=== PATIENT | male | born 1955 | race Caucasian/White ===

== ENCOUNTER 2019-03-21 12:15 | Inpatient (IN) | payer OTHER ==
--- NOTE | 2019-03-21 12:38 | ER Document Report ---
ED Medical Screen (RME) - General Chief Complaint: Dizziness Stated Complaint: DIZZINESS,FACIAL TINGLING,LEFT ARM NUMBNESS Time Seen by Provider: 03/21/19 12:32 Mode of Arrival: Wheelchair Information source: Patient Notes: 63-year-old male presented to ED for numbness and tingling to the right side of his face arm hand and weakness to the his right arm and leg with decreased sensation to the left arm. He states this all started Wednesday. He states he is still unsteady on his feet little lightheaded and having trouble walking due to this symptoms. He states he had a similar symptoms on but they did not last so he did not come and get evaluated. He states he lives alone so he did not know what was going on. Patient is NIH negative at this time. His symptoms do sound consistent with a TIA I will get blood urine and have seen by the physicians. As he has had 2 episodes that 1 at and one yesterday. I have greeted and performed a rapid initial assessment of this patient. A comprehensive ED assessment and evaluation of the patient, analysis of test results and completion of medical decision making process will be conducted by an additional ED providers. Physical Exam - Vital signs Vitals: Temp Pulse Resp BP Pulse Ox 97.8 F 83 16 146/84 H 99 03/21/19 12:25 03/21/19 12:25 03/21/19 12:25 03/21/19 12:25 03/21/19 12:25 Course - Vital Signs Vital signs: Temp Pulse Resp BP Pulse Ox 97.8 F 83 16 146/84 H 99 03/21/19 12:25 03/21/19 12:25 03/21/19 12:25 03/21/19 12:25 03/21/19 12:25
[2019-03-21 13:19] LABS: ABSOLUTE BASOPHILS # (AUTO) 0.1 10^3/uL (0.0-0.2); ABSOLUTE EOSINOPHILS # (AUTO) 0.1 10^3/uL (0.0-0.6); ABSOLUTE LYMPHOCYTES (AUTO) 1.4 10^3/uL (0.5-4.7); ABSOLUTE MONOCYTES (AUTO) 0.5 10^3/uL (0.1-1.4); ABSOLUTE NEUT (AUTO) 4.6 10^3/uL (1.7-8.2); EOSINOPHILS % (AUTO) 1.5 % (0-6); HEMATOCRIT 43.8 % (37.9-51.0); HEMOGLOBIN 15.5 g/dL (13.5-17.0); MEAN CORPUSCULAR HEMOGLOBIN 33.7 pg (27.0-33.4); MEAN CORPUSCULAR HGB CONC 35.3 g/dL (32.0-36.0); MEAN CORPUSCULAR VOLUME 96 fl (80-97); MONOCYTES % (AUTO) 7.6 % (3-13); PLATELET COUNT 172 10^3/uL (150-450); RED BLOOD COUNT 4.59 10^6/uL (4.35-5.55); RED CELL DISTRIBUTION WIDTH 12.4 % (11.5-14.0); SEGMENTED NEUTROPHILS % (AUTO) 68.9 % (42-78); TOTAL CELLS COUNTED % (AUTO) 100 %; WHITE BLOOD COUNT 6.6 10^3/uL (4.0-10.5)
[2019-03-21 13:25] LABS: INTERNATIONAL RATION (INR) 0.99; PROTHROMBIN TIME 13.1 SEC (11.4-15.4)
[2019-03-21 13:26] LABS: PARTIAL THROMBOPLASTIN TIME 26.1 SEC (23.5-35.8)
[2019-03-21 13:28] LABS: APPEARANCE,URINE CLEAR; BILIRUBIN,URINE NEGATIVE (NEGATIVE); COLOR,URINE YELLOW; GLUCOSE, URINE >=500 mg/dL (NEGATIVE); KETONES,URINE 20 mg/dL (NEGATIVE); PROTEIN,URINE NEGATIVE (NEGATIVE); URINE SPECIFIC GRAVITY 1.031; UROBILINOGEN,URINE NEGATIVE mg/dL (<2.0)
[2019-03-21 13:41] LABS: ALBUMIN 4.5 g/dL (3.5-5.0); ALKALINE PHOSPHATASE 51 U/L (38-126); ANION GAP 13 (5-19); ASPARTATE AMINO TRANSFERASE 46 U/L (17-59); BILIRUBIN,DIRECT 0.2 mg/dL (0.0-0.4); BILIRUBIN,TOTAL 0.8 mg/dL (0.2-1.3); BLOOD UREA NITROGEN 13 mg/dL (7-20); CALCIUM 9.6 mg/dL (8.4-10.2); CARBON DIOXIDE 24 mmol/L (22-30); CHLORIDE 102 mmol/L (98-107); GLUCOSE 234 mg/dL (75-110); POTASSIUM 3.8 mmol/L (3.6-5.0)
[2019-03-21] MEDS ORDERED: NORMAL SALINE 1000 ML 1,000 ML IV ONE (14:45)
--- NOTE | 2019-03-21 14:52 | ER Document Report ---
ED Dizziness/Weakness - General Chief Complaint: Numbness of Arm Stated Complaint: DIZZINESS,FACIAL TINGLING,LEFT ARM NUMBNESS Time Seen by Provider: 03/21/19 12:32 Primary Care Provider: [facility] [Primary Care Provider] - Follow up as needed Mode of Arrival: Wheelchair Information source: Patient TRAVEL OUTSIDE OF THE [place] IN LAST 30 DAYS: No - HPI Patient complains to provider of: Dizziness, Vertigo Onset: Other - Patient gives history that his first episode of dizziness and numbness and tingling on the right side of his body occurred May 2018 lasted for 1 day. On 1 week ago he noted part of the day he had similar symptoms of numbness tingling facial numbness right side it that lasted about 6 hours during that day. Symptoms abated and no further problem until 1 week later which was Wednesday he noted that he was having numbness tingling problems with gait that started on Wednesday night on into Wednesday. Patient found himself crawling on the floor in order to transport himself in his house. Or required holding onto furniture or the marx. Patient began using a cane and after doing some research and on his condition as well as discussion with with friends and family he elected to come to the emergency department for evaluation today. Quality of pain: No pain Severity: Moderate Pain Level: 0 Context: Other - Patient reports that he took 5 baby aspirin's yesterday, and he took 2 baby aspirin today. Associated symptoms: Dizzy, Other - Denies any syncope or falls. Denies headache nausea vomiting chills. Patient did report that he had problems swallowing on Wednesday. He is now no problems with eating p.o. food or liquid drinking liquids. Baseline gait: Uses a cane - Related Data Allergies/Adverse Reactions: bee venom protein (honey bee) Allergy (Verified 03/21/19 18:43) Penicillins Allergy (Verified 03/21/19 18:43) Past Medical History - General Information source: Patient - Social History Smoking Status: Former Smoker Frequency of alcohol use: None Drug Abuse: None Lives with: Alone Family History: None Patient has suicidal ideation: No Patient has homicidal ideation: No - Past Medical History Cardiac Medical History: Reports: None Pulmonary Medical History: Reports: None EENT Medical History: Reports: Other - Wears glasses Neurological Medical History: Reports: Other - See HPI Endocrine Medical History: Reports: None Renal/ Medical History: Reports: None Malignancy Medical History: Reports None GI Medical History: Reports: None Musculoskeletal Medical History: Reports Other - History of broken bones in the past including left wrist Skin Medical History: Reports None Psychiatric Medical History: Reports: None Past Surgical History: Reports: None - Immunizations Immunizations up to date: Yes Review of Systems - Review of Systems Constitutional: See HPI EENT: See HPI Cardiovascular: See HPI, Dizziness, Lightheaded Respiratory: No symptoms reported Gastrointestinal: No symptoms reported Genitourinary: No symptoms reported Musculoskeletal: No symptoms reported Skin: No symptoms reported Hematologic/Lymphatic: No symptoms reported Neurological/Psychological: See HPI Physical Exam - Vital signs Vitals: Temp Pulse Resp BP Pulse Ox 97.8 F 83 16 146/84 H 99 03/21/19 12:25 03/21/19 12:25 03/21/19 12:25 03/21/19 12:25 03/21/19 12:25 Interpretation: Normal - General General appearance: Appears well, Alert - HEENT Head: Normocephalic, Atraumatic Eyes: Normal Pupils: PERRL - Respiratory Respiratory status: No respiratory distress Chest status: Nontender Breath sounds: Normal Chest palpation: Normal - Cardiovascular Rhythm: Regular Heart sounds: Normal auscultation Murmur: No - Abdominal Inspection: Normal Distension: No distension Bowel sounds: Normal Tenderness: Nontender Organomegaly: No organomegaly - Back Back: Normal, Nontender - Extremities General upper extremity: Normal inspection, Nontender, Normal color, Normal ROM, Normal temperature General lower extremity: Normal inspection, Nontender, Normal color, Normal ROM, Normal temperature, Normal weight bearing. No: Gonzalo's sign - Neurological Neuro grossly intact: Yes Cognition: Normal Orientation: AAOx4 [place] Coma Scale Eye Opening: Spontaneous [place] Coma Scale Verbal: Oriented [place] Coma Scale Motor: Obeys Commands N[place]hi Coma Scale Total: 15 Speech: Normal Motor strength normal: LUE, RUE, LLE, RLE Sensory: Normal - Psychological Associated symptoms: Normal affect, Normal mood - Skin Skin Temperature: Warm Skin Moisture: Dry Skin Color: Normal Course - Vital Signs Vital signs: Temp Pulse Resp BP Pulse Ox 98.1 F 76 13 178/100 H 99 03/21/19 20:42 03/21/19 12:35 03/21/19 19:01 03/21/19 20:42 03/21/19 20:42 - Laboratory Result Diagrams: 03/21/19 12:55 03/21/19 12:55 Laboratory results interpreted by me: 03/21/19 03/21/19 03/21/19 12:55 12:55 13:14 MCH 33.7 H Glucose 234 H Urine Glucose (UA) >=500 H Urine Ketones 20 H - Diagnostic Test Radiology reviewed: Image reviewed, Reports reviewed Critical Care Note - Critical Care Note Total time excluding time spent on procedures (mins): 75 - Extensive work-up for CVA that out of the window for acute intervention. Patient is 4 days into his stroke syndrome and no intervention is indicated at this time. Discussed case with transferring hospital who stated that patient did not meet any criteria for transfer inasmuch as there is no intervention to be done. 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
--- NOTE | 2019-03-21 15:07 | ER Document Report ---
ED NIH Stroke Scale - NIH Stroke Scale When completed:: Before Alteplase *: 1. NIH scale should be completed with appropriate accompanying assessment tools. *: 2. The NIH should reflect what the patient is capable of doing and should not be coached by the clinician. 1a. Level of Consciousness: 0=Alert;keenly responsive -: 1=Drowsy -: 2=Obtunded -: 3=Coma/unresponsive or reflex to noxious stimuli. 1a. Responses: 0 1b. Orientation Questions: a. What month is it? -: b. How old are you? -: 0=Answers both questions correctly. -: 1=Answers one question correctly or patient is intubated or has orotracheal trauma. -: 2=Answers neither question correctly. 1b. Responses: 0 1c. Response to commands: a. Open and close eyes? -: b. Wastewater Treatment Operator and release hand? -: Credit is given despite weakness. Demonstration of task is permitted. Substitute command if hands cannot be used. -: 0=Performs both tasks correctly -: 1=Performs one task correctly -: 2=Performs neither task correctly 1c. Responses: 0 2. Gaze: Establish eye contact and instruct patient to "Follow my finger" -: 0=Normal -: 1=Partial gaze palsy. Gaze is abnormal in one or both eyes, but where forced deviation or total gaze paresis is not present. -: 2=Forced deviation or total gaze paresis. 2. Responses: 0 3. Visual Skinner: Sees fingers in all four quadrants. -: 0=No visual loss. -: 1=Partial hemianopsia. -: 2=Complete hemianopsia. -: 3=Bilateral hemianopsia (including Cortical blindness) 3. Responses: 0 4. Facial Movement: Instruct patient to: -: a. Show me your teeth -: b. Raise your eyebrows -: c. Close your eyes -: d. Smile -: 0=Normal symmetrical movement -: 1=Minor paralysis (flattened nasolabial fold, asymmetry on smiling). -: 2=Partial paralysis (total or near total paralysis of lower face). -: 3=Complete paralysis of upper and lower face 4. Responses: 0 5. Motor functions (left arm): Alternate sides and extend each arm with palms down (90 degrees if sitting or 45 degrees for supine). -: 0=No drift;limb holds for full 10 seconds. -: 1=Drift; limb holds but drifts down before full 10 seconds, but does not hit bed. -: 2=Some effort against gravity; limb cannot get to or maintain position. -: 3=No effort against gravity; limb falls. -: 4=No movement. -: UN=Amputation, joint fusion, explain in comments. 5. Responses (left arm): 0 5. Motor Functions (right arm): Alternate sides and extend each arm with palms down (90 degrees if sitting or 45 degrees for supine). -: 0=No drift;limb holds for full 10 seconds. -: 1=Drift; limb holds but drifts down before full 10 seconds, but does not hit bed. -: 2=Some effort against gravity; limb cannot get to or maintain position. -: 3=No effort against gravity; limb falls. -: 4=No movement. -: UN=Amputation, joint fusion, explain in comments. 5. Responses (right arm): 0 6. Motor Functions (left leg): With patient lying supine, alternate sides and extend each leg (30 degrees always while supine). -: 0=No drift, leg holds position for full 5 seconds -: 1=Drift; leg falls before full 5 seconds but does not hit bed. -: 2=Some effort against gravity, leg falls to bed but some effort against gravity. -: 3=No effort against gravity, leg falls to bed immediately. -: 4=No movement. -: UN=Amputation, joint fusion; explain in comments. 6. Responses (left leg): 0 6. Motor Functions (right leg): With patient lying supine, alternate sides and extend each leg (30 degrees always while supine). -: 0=No drift, leg holds position for full 5 seconds -: 1=Drift; leg falls before full 5 seconds but does not hit bed. -: 2=Some effort against gravity, leg falls to bed but some effort against gravity. -: 3=No effort against gravity, leg falls to bed immediately. -: 4=No movement. -: UN=Amputation, joint fusion; explain in comments. 6. Responses (right leg): 0 7. Limb Ataxia: With eyes open instruct patient to: -: a. "Touch your finger to your nose". -: b. "Touch your heel to your azul" -: 0=Absent -: 1=Present in one limb. -: 2=Present in two limbs. -: UN=Amputation or joint fusion; explain in comments. 7. Responses: 0 8. Sensory: Test sensation using pinprick or noxious stimuli. Test as many body parts as possible. -: 0=Normal;no sensory loss -: 1=Mile to moderate sensory loss (patient feels pin prick but is less sharp on affected side). -: 2=Severe or total sensory loss. 8. Responses: 0 9. Best Language: Instruct patient to: -: a. "Describe what you see in this picture." -: b. "Name the items in this picture." -: c. "Read these sentences." -: 0=No aphasia, normal -: 1=Mild to moderate aphasia. -: 2=Severe aphasia -: 3=Mute, global aphasia, no usable speech or auditory comprehension. 9. Responses: 0 10. Articulation, Dysarthia: Instruct patient to: -: "Read these words" or "Repeat these words" -: 0=Normal -: 1=Mild to moderate; patient may slur some words but can be understood without difficulty. -: 2=Severe; patients speech so slurred as to be unintelligible in the absence of dysphasia. -: UN=Intubated or other physical barrier, explain in comments. 10. Responses: 0 11. Extinction or inattention: 0=No abnormality -: 1= Visual, tactile, auditory, spatial, or personal inattention or extinction to bilateral simulation in one or the sensory modalities. -: 2=Profound juancho-inattention or juancho-inattention to more than one modality; does not recognize own hand. 11. Responses: 0 Total Score: 0 Notes: Patient is noted to have a diminished gag reflex. Also numbness paresthesia to the right wrist area and and loss of sensation subjective to heat and cold on the left upper extremity is a a low NIH score of 3
--- NOTE | 2019-03-21 15:14 | RADIOLOGY REPORT (SQ) ---
EXAM DESCRIPTION: CT HEAD WITHOUT COMPLETED DATE/TIME: 03/21/2019 2:56 pm REASON FOR STUDY: dizziness/vertigo ataxia COMPARISON: None. TECHNIQUE: Axial images acquired through the brain without intravenous contrast. Images reviewed wi th bone, brain and subdural windows. Additional sagittal and coronal reconstructions were generated. Images stored on PACS. All CT scanners at this facility use dose modulation, iterative reconstruction, and/or weight based d osing when appropriate to reduce radiation dose to as low as reasonably achievable (ALARA). [facility]: Dose Right [facility]: CareDose [facility]: Dose Right [facility]: Teradose 4D [facility]: Smart Wings Intellect RADIATION DOSE: CT Rad equipment meets quality standard of care and radiation dose reduction techniq ues were employed. CTDIvol: 53.2 mGy. DLP: 1097 mGy-cm. mGy. LIMITATIONS: None. FINDINGS: VENTRICLES: Normal size and contour. CEREBRUM: No masses. No hemorrhage. No midline shift. No evidence for acute infarction. Normal gra y/white matter differentiation. No areas of low density in the white matter. CEREBELLUM: No masses. No hemorrhage. No alteration of density. No evidence for acute infarction. EXTRAAXIAL SPACES: No fluid collections. No masses. ORBITS AND GLOBE: No intra- or extraconal masses. Normal contour of globe without masses. CALVARIUM: No fracture. PARANASAL SINUSES: No fluid or mucosal thickening. SOFT TISSUES: No mass or hematoma. OTHER: No other significant finding. IMPRESSION: NORMAL BRAIN CT WITHOUT CONTRAST. EVIDENCE OF ACUTE STROKE: NO. COMMENT: Quality ID # [id number]: Final reports with documentation of one or more dose reduction techniques (e.g., Automated exposure control, adjustment of the mA and/or kV according to patient size, use of iterative reconstruction technique) TECHNICAL DOCUMENTATION: JOB ID: [id number] [employer]- All Rights Reserved Reading location - IP/workstation name: [email or web address]
--- NOTE | 2019-03-21 15:44 | RADIOLOGY REPORT (SQ) ---
EXAM DESCRIPTION: CHEST SINGLE VIEW COMPLETED DATE/TIME: 03/21/2019 3:22 pm REASON FOR STUDY: dizziness COMPARISON: None. EXAM PARAMETERS: NUMBER OF VIEWS: One view. TECHNIQUE: Single frontal radiographic view of the chest acquired. RADIATION DOSE: NA LIMITATIONS: None. FINDINGS: LUNGS AND PLEURA: No opacities, masses or pneumothorax. No pleural effusion. MEDIASTINUM AND HILAR STRUCTURES: No masses. Contour normal. HEART AND VASCULAR STRUCTURES: Heart normal in size. Normal vasculature. BONES: No acute findings. HARDWARE: None in the chest. OTHER: No other significant finding. IMPRESSION: NO ACUTE RADIOGRAPHIC FINDING IN THE CHEST. TECHNICAL DOCUMENTATION: JOB ID: [id number] [employer]- All Rights Reserved Reading location - IP/workstation name: [email or web address]
--- NOTE | 2019-03-21 15:59 | EKG REPORT ---
SEVERITY:- ABNORMAL ECG - SINUS RHYTHM BORDERLINE IVCD WITH LAD NONSPECIFIC T ABNORMALITIES, LATERAL LEADS : Confirmed by: Edu Roe MD 21-Mar-2019 15:58:41
--- NOTE | 2019-03-21 19:27 | RADIOLOGY REPORT (SQ) ---
EXAM DESCRIPTION: MRI HEAD WITHOUT; MRA HEAD WITHOUT COMPLETED DATE/TIME: 03/21/2019 6:56 pm REASON FOR STUDY: dizziness/ataxia/right arm numbness; atsaxia/dizziness/right upper ext numbness COMPARISON: CT brain 03/21/2019 Carotid Doppler 03/21/2019 TECHNIQUE: Multiplanar imaging includes non-contrasted T1, T2, FLAIR, and diffusion with ADC map seq uences. [place] MRA exam was performed, using 3D [id number] acquisition technique. A maximum in tensity projected images of the [place] were generated on independent workstation. Addition al 3 dimensional post-processing performed to develop Maximal Intensity Projection images (MIP) Images stored on PACS. LIMITATIONS: None. FINDINGS: ANATOMY: No developmental anomalies. Normal vascular flow voids. Pituitary fossa normal. CSF SPACES: Normal in size and contour. No hemorrhage. CEREBRUM: Sulci and gyri normal in size and contour. Normal white matter signal on FLAIR imaging. No evidence of hemorrhage, mass, or extraaxial fluid collection. POSTERIOR FOSSA: Diffusion-weighted images are positive for acute ischemic change in the inferior rig ht cerebellar hemisphere, best shown on images 4-7. Abnormal diffusion signal is seen in the postero lateral right medulla on axial image 4. Internal auditory canals, cerebello-pontine angles, mastoids normal. DIFFUSION IMAGING: Positive for acute ischemic change in the inferior right cerebellar hemisphere and posterolateral right medulla. ORBITS: No masses. Globes normal. PARANASAL SINUSES: No fluid levels. Mucosa normal. [place] MRA: At the foramen magnum, no flow is identified in the distal right vertebral linda ry or the right posterior inferior cerebellar artery. There is flow in the right anterior inferior c erebellar artery, middle cerebellar artery and superior cerebellar arteries on the right, and flow si gnal in the distal right intracranial vertebral artery adjacent to the basilar artery. Remainder of the [place] is otherwise unremarkable. No stenosis vascular malformation or an eurysm elsewhere. IMPRESSION: Diffusion-weighted images are positive for acute nonhemorrhagic ischemic change in the i nferior right cerebellar hemisphere and posterolateral right medulla Absent flow signal in the right vertebral artery at the level of the foramen magnum. No flow signal in the right posterior inferior cerebellar artery is seen. EVIDENCE OF ACUTE STROKE: YES. TECHNICAL DOCUMENTATION: JOB ID: [id number]- All Rights Reserved Reading location - IP/workstation name: [email or web address]
--- NOTE | 2019-03-21 19:27 | RADIOLOGY REPORT (SQ) ---
EXAM DESCRIPTION: MRI HEAD WITHOUT; MRA HEAD WITHOUT COMPLETED DATE/TIME: 03/21/2019 6:56 pm REASON FOR STUDY: dizziness/ataxia/right arm numbness; atsaxia/dizziness/right upper ext numbness COMPARISON: CT brain 03/21/2019 Carotid Doppler 03/21/2019 TECHNIQUE: Multiplanar imaging includes non-contrasted T1, T2, FLAIR, and diffusion with ADC map seq uences. [place] MRA exam was performed, using 3D [id number]-ol-olghkh acquisition technique. A maximum in tensity projected images of the [place] were generated on independent workstation. Addition al 3 dimensional post-processing performed to develop Maximal Intensity Projection images (MIP) Images stored on PACS. LIMITATIONS: None. FINDINGS: ANATOMY: No developmental anomalies. Normal vascular flow voids. Pituitary fossa normal. CSF SPACES: Normal in size and contour. No hemorrhage. CEREBRUM: Sulci and gyri normal in size and contour. Normal white matter signal on FLAIR imaging. No evidence of hemorrhage, mass, or extraaxial fluid collection. POSTERIOR FOSSA: Diffusion-weighted images are positive for acute ischemic change in the inferior rig ht cerebellar hemisphere, best shown on images 4-7. Abnormal diffusion signal is seen in the postero lateral right medulla on axial image 4. Internal auditory canals, cerebello-pontine angles, mastoids normal. DIFFUSION IMAGING: Positive for acute ischemic change in the inferior right cerebellar hemisphere and posterolateral right medulla. ORBITS: No masses. Globes normal. PARANASAL SINUSES: No fluid levels. Mucosa normal. [place] MRA: At the foramen magnum, no flow is identified in the distal right vertebral linda ry or the right posterior inferior cerebellar artery. There is flow in the right anterior inferior c erebellar artery, middle cerebellar artery and superior cerebellar arteries on the right, and flow si gnal in the distal right intracranial vertebral artery adjacent to the basilar artery. Remainder of the [place] is otherwise unremarkable. No stenosis vascular malformation or an eurysm elsewhere. IMPRESSION: Diffusion-weighted images are positive for acute nonhemorrhagic ischemic change in the i nferior right cerebellar hemisphere and posterolateral right medulla Absent flow signal in the right vertebral artery at the level of the foramen magnum. No flow signal in the right posterior inferior cerebellar artery is seen. EVIDENCE OF ACUTE STROKE: YES. TECHNICAL DOCUMENTATION: JOB ID: [id number]- All Rights Reserved Reading location - IP/workstation name: [email or web address]
--- NOTE | 2019-03-21 22:19 | RADIOLOGY REPORT (SQ) ---
EXAM DESCRIPTION: [facility]: US CAROTID DOPPLER BILATERAL CLINICAL HISTORY: 63 years Male; dizziness/ataxia TECHNIQUE: Grayscale and Doppler (color and pulse) ultrasound of bilateral carotid arteries and the vertebral arteries was performed. Stenosis assessment based on Carotid Artery Stenosis: [place]-Scale and Doppler US DiagnosisSociety of Radiologists in Ultrasound Consensus Conference; Radiology, Feb 2003, Vol. 229:340-346 COMPARISON: None. FINDINGS: All velocities in cm/sec. Right carotid: Morphology: No significant plaque. ICA velocities: Proximal 68/20, distal 94/36 (Normal < 124/40) CCA PSV: Proximal 110, distal 86 ICA/CCA PSV ratio: 1.1 (Normal < 2.0) ECA: PSV 102 Left carotid: Morphology: No significant plaque. ICA velocities: Proximal 86/32, distal 85/35 (Normal < 124/40) CCA PSV: Proximal 83, distal 97 ICA/CCA PSV ratio: 0.9 (Normal < 2.0) ECA: PSV 75 Right vertebral: Could not be visualized Left vertebral: Antegrade, PSV 58 IMPRESSION: 1. No significant stenosis of the cervical carotid arteries 2. Normal antegrade flow in the left vertebral artery 3. Right vertebral artery could not be visualized. Correlating with MRA performed today, the right vertebral artery may be occluded. Consider CTA head and neck.
[2019-03-21] MEDS ORDERED: ONDANSETRON HCL INJ/PF 4 MG/2 ML SDV IV PRN (22:31)
[2019-03-21] MEDS ORDERED: DOCUSATE SODIUM 100 MG CAPSULE PO PRN (22:31)
[2019-03-21] MEDS ORDERED: MAGNESIUM HYDROXIDE SUSP 30 ML UDCUP PO PRN (22:31)
[2019-03-21] MEDS ORDERED: ACETAMINOPHEN 325 MG TABLET PO PRN (22:31)
[2019-03-21] MEDS ORDERED: FAMOTIDINE 20 MG TABLET PO ONE (23:15)
[2019-03-22] MEDS ORDERED: HYDRALAZINE HCL INJ/PF 20 MG/1 ML SDV IV PRN ×2 (01:29→11:17)
--- NOTE | 2019-03-22 01:29 | PDOC H&P ---
History of Present Illness Admission Date/PCP: 03/21/19 20:57 [facility] Patient complains of: Gait instability History of Present Illness: FRANCE CHAVIRA is a 63 year old male who presented to the emergency room with a 5-day history of gait instability. He admits the sudden onset of gait ins tability (falling to the right), numbness and tingling of his right upper extremity, lower extremity and face. His vertigo is also accompanied by loss of hot cold discrimination in his left upper extremity and the back of his neck on the left. His vertigo has been severe and has required him to use a cane to ambulate. His numbness and tingling have improved mildly and his hot cold discrimination has also improved minimally since onset. He denies other associated or accompanying signs and symptoms. He admits prior similar symptoms on 2 occasions that were transient lasting for 6 to 24 hours. He denies identification of any aggravating or ameliorating factors for his vertigo. In the emergency room he was found to have a right inferior cerebellar infarction. He was subsequently admitted to the hospital for further evaluation and treatment. Past Medical History Cardiac Medical History: Denies: Coronary Artery Disease, Hyperlipidema, Hypertension Pulmonary Medical History: Denies: Asthma, Chronic Obstructive Pulmonary Disease (COPD) EENT Medical History: Reports: Eyes - Wears prescription lenses Denies: Ears - Hearing aids Neurological Medical History: Reports: Other - See HPI Denies: Hemorrhagic CVA, Ischemic CVA, Seizures Endocrine Medical History: Denies: Diabetes Mellitus Type 1, Hyperthyroidism, Hypothyroidism Renal/ Medical History: Denies: Chronic Kidney Disease, Nephrolithiasis Malignancy Medical History: Reports: None GI Medical History: Denies: Cirrhosis, Crohn's Disease, Gastroesophageal Reflux Disease, Hepatitis, Peptic Ulcer Disease, Ulcerative Colitis Musculoskeltal Medical History: Denies: Arthritis, Fibromyalgia Skin Medical History: Denies: Eczema, Psoriasis Psychiatric Medical History: Denies: Alcohol Dependency, Substance Abuse, Tobacco Dependency Traumatic Medical History: Reports: None Hematology: Denies: Anemia, Bleeding Tendencies Infectious Medical History: Reports: None Past Surgical History Past Surgical History: Reports: None Social History Information Source: Patient Lives with: Alone Smoking Status: Former Smoker Electronic Cigarette use?: No Frequency of Alcohol Use: Social Hx Recreational Drug Use: No Drugs: None Hx Prescription Drug Abuse: No - Advance Directive Resuscitation Status: Full Code Surrogate healthcare decision maker:: [place] Family History Family History: DM, Hypertension, Malignancy. denies: CAD, CVA Parental Family History Reviewed: Yes Children Family History Reviewed: No Sibling(s) Family History Reviewed.: Yes Medication/Allergy Home Medications: Famotidine [Pepcid 20 mg Tablet] 20 mg PO BID 03/21/19 Allergies/Adverse Reactions: bee venom protein (honey bee) Allergy (Verified 03/21/19 18:43) Penicillins Allergy (Verified 03/21/19 18:43) Review of Systems Constitutional: ABSENT: chills, fever(s), weakness Eyes: ABSENT: visual disturbances, other - Eye pain Ears: ABSENT: hearing changes, other - Ear pain Nose, Mouth, and Throat: ABSENT: headache(s), mouth pain, sore throat Cardiovascular: ABSENT: chest pain, palpitations Respiratory: ABSENT: cough, dyspnea Gastrointestinal: ABSENT: abdominal pain, constipation, diarrhea, nausea, vomiting Genitourinary: ABSENT: dysuria, hematuria Musculoskeletal: ABSENT: back pain, joint swelling, muscle weakness Integumentary: ABSENT: pruritus, rash Neurological: PRESENT: as per HPI, abnormal gait - Sensation of falling to the right, numbness, tingling, other - Loss of hot-cold sensation and discrimination in the left upper extremity in the back of the left neck. ABSENT: confusion, convulsions, focal weakness, memory loss Psychiatric: ABSENT: anxiety, depression Endocrine: ABSENT: cold intolerance, heat intolerance Hematologic/Lymphatic: ABSENT: easy bleeding, easy bruising Allergic/Immunologic: ABSENT: seasonal rhinorrhea Physical Exam Vital Signs: Temp Pulse Resp BP Pulse Ox 98.1 F 80 13 178/100 H 99 03/21/19 20:42 03/21/19 18:00 03/21/19 19:01 03/21/19 20:42 03/21/19 20:42 Intake & Output 03/19/19 03/20/19 03/21/19 23:59 23:59 23:59 Intake Total 1000 Balance 1000 Weight 95.7 kg General appearance: PRESENT: no acute distress, cooperative Head exam: PRESENT: atraumatic, normocephalic Eye exam: PRESENT: conjunctiva pink. ABSENT: conjunctival injection, EOMI, nystagmus, scleral icterus Ear exam: PRESENT: normal external ear exam. ABSENT: bleeding, drainage Mouth exam: PRESENT: dry mucosa, neck supple Neck exam: ABSENT: thyromegaly, tracheal deviation Respiratory exam: PRESENT: clear to auscultation bety, symmetrical, unlabored Cardiovascular exam: PRESENT: RRR. ABSENT: clicks, gallop, rubs Pulses: PRESENT: normal radial pulses, normal dorsalis pedis pul Vascular exam: PRESENT: normal capillary refill. ABSENT: pallor GI/Abdominal exam: PRESENT: normal bowel sounds, soft. ABSENT: tenderness Rectal exam: PRESENT: deferred Extremities exam: ABSENT: joint swelling, pedal edema Musculoskeletal exam: ABSENT: deformity, dislocation Neurological exam: PRESENT: alert, oriented to person, oriented to place, oriented to time, oriented to situation, motor sensory deficit - Subjectively decreased sensation of the right face and right upper extremity, subjectively decreased hot-cold sensation/discrimination in the left upper extremity and left posterior cervical region, other - Absent gag reflex per ER physician evaluation report not retested by this examiner Psychiatric exam: PRESENT: appropriate affect, normal mood Skin exam: PRESENT: dry, intact, warm. ABSENT: jaundice, rash, urticaria Results Laboratory Results: 03/21/19 12:55 03/21/19 12:55 03/21/19 03/21/19 03/21/19 12:55 12:55 13:14 WBC 6.6 RBC 4.59 Hgb 15.5 Hct 43.8 MCV 96 MCH 33.7 H MCHC 35.3 RDW 12.4 Plt Count 172 Seg Neutrophils % 68.9 Sodium 138.7 Potassium 3.8 Chloride 102 Carbon Dioxide 24 Anion Gap 13 BUN 13 Creatinine 0.72 Est GFR ( Amer) > 60 Glucose 234 H Calcium 9.6 Total Bilirubin 0.8 AST 46 Alkaline Phosphatase 51 Total Protein 8.0 Albumin 4.5 Lipase 108.3 Urine Color YELLOW Urine Appearance CLEAR Urine pH 5.0 Ur Specific [place] 1.031 Urine Protein NEGATIVE Urine Glucose (UA) >=500 H Urine Ketones 20 H Urine Blood NEGATIVE Urine RBC (Auto) 0 03/21/19 12:55 Troponin I < 0.012 Impressions: Head CT 03/21/19 14:41 IMPRESSION: NORMAL BRAIN CT WITHOUT CONTRAST. EVIDENCE OF ACUTE STROKE: NO. Chest X-Ray 03/21/19 14:44 IMPRESSION: NO ACUTE RADIOGRAPHIC FINDING IN THE CHEST. Head MRI 03/21/19 16:38 IMPRESSION: Diffusion-weighted images are positive for acute nonhemorrhagic ischemic change in the inferior right cerebellar hemisphere and posterolateral right medulla Absent flow signal in the right vertebral artery at the level of the foramen ma gnum. No flow signal in the right posterior inferior cerebellar artery is seen. EVIDENCE OF ACUTE STROKE: YES. Brain MRI with MRA 03/21/19 16:39 IMPRESSION: Diffusion-weighted images are positive for acute nonhemorrhagic ischemic change in the inferior right cerebellar hemisphere and posterolateral right medulla Absent flow signal in the right vertebral artery at the level of the foramen magnum. No flow signal in the right posterior inferior cerebellar artery is seen. EVIDENCE OF ACUTE STROKE: YES. Assessment and Plan - Diagnosis (1) Acute cerebrovascular accident (CVA) of cerebellum Is this a current diagnosis for this admission?: Yes (2) Gait disturbance Is this a current diagnosis for this admission?: Yes (3) Numbness and tingling of left upper extremity Is this a current diagnosis for this admission?: Yes (4) Hypertension Qualifiers: Hypertension type: unspecified Qualified Code(s): I10 - Essential (primary) hypertension Is this a current diagnosis for this admission?: Yes - Plan Summary Summary: Patient is admitted to the medical floor where he will receive routine supportive and symptomatic cares. He will have neuro checks performed every 4 hours and his vital signs be monitored closely. Physical therapy, occupational therapy and speech therapy will be consulted to evaluate the patient in the morning patient will also be seen by the stroke nurse and the dietitian for ongoing stroke prevention management. A telemetry neurology consultation may need to be obtained. Patient will be started on an antiplatelet medication and a statin. Antihypertensives will be provided as required starting with a hydrochlorothiazide diuretic. He will use Nubain 5 to 10 mg IV every 3 hours on as-needed basis for pain. He will receive IV hydralazine 20 mg every 4 hours as needed for blood pressure greater than 160/100. - Time Time Spent with patient: 25-34 minutes Medications reviewed and adjusted accordingly: No - No home meds Anticipated discharge: Home - Inpatient Certification Based on my medical assessment, after consideration of the patient's comorbidities, presenting symptoms, or acuity I expect that the services needed warrant INPATIENT care.: Yes I certify that my determination is in accordance with my understanding of Medicare's requirements for reasonable and necessary INPATIENT services [42 CFR 412.3e].: Yes Medical Necessity: Need Close Monitoring Due to Risk of Patient Decompensation, Need for Neurological Checks
[2019-03-22] MEDS ORDERED: INFLUENZA QUAD (6MOS+) 2019-20 VAC 0.5 ML SYR IM ONE (02:38)
[2019-03-22 05:40] LABS: TRIGLYCERIDES 159 mg/dL (<150)
[2019-03-22 05:50] LABS: DIRECT LDL 185 mg/dL (<100)
[2019-03-22 05:53] LABS: VLDL CHOLESTEROL 31.8 mg/dL (10-31)
[2019-03-22] MEDS: HEPARIN SOD (PORCINE) 5,000 UNIT/ML 1 ML VIAL SUBCUT SCH ×3 (08:45→22:28)
[2019-03-22] MEDS: CLOPIDOGREL BISULFATE 75 MG TABLET PO SCH (09:38)
[2019-03-22] MEDS: HYDROCHLOROTHIAZIDE 12.5 MG TABLET PO SCH (09:39)
[2019-03-22] MEDS ORDERED: FAMOTIDINE 20 MG TABLET PO SCH (10:00)
--- NOTE | 2019-03-22 11:16 | PDOC PROGRESS REPORT ---
Subjective Progress Note for:: 03/22/19 Reason For Visit: ACUTE RIGHT CEREBELLAR INFARCTION 03/22/2019 Patient was admitted last night for apparent CVA. Patient had another episode which lasted almost 1 entire day. At that time patient was "off balance", pain in the right upper extremity Physical Exam Vital Signs: Temp Pulse Resp BP Pulse Ox 97.3 F 70 17 114/74 99 03/22/19 07:31 03/22/19 07:31 03/22/19 07:31 03/22/19 07:31 03/22/19 07:31 Intake & Output 03/21/19 03/22/19 03/23/19 06:59 06:59 06:59 Intake Total 1000 Balance 1000 Weight 91.9 kg General appearance: PRESENT: no acute distress, well-developed, well-nourished Respiratory exam: PRESENT: clear to auscultation bety. ABSENT: rales, rhonchi, wheezes Cardiovascular exam: PRESENT: RRR. ABSENT: diastolic murmur, rubs, systolic murmur Neurological exam: PRESENT: alert, awake, oriented to person, oriented to place, oriented to time, oriented to situation, CN II-XII grossly intact. ABSENT: motor sensory deficit Psychiatric exam: PRESENT: appropriate affect, normal mood. ABSENT: homicidal ideation, suicidal ideation Results Laboratory Results: 03/21/19 12:55 03/21/19 12:55 03/21/19 03/21/19 03/21/19 12:55 12:55 13:14 WBC 6.6 RBC 4.59 Hgb 15.5 Hct 43.8 MCV 96 MCH 33.7 H MCHC 35.3 RDW 12.4 Plt Count 172 Seg Neutrophils % 68.9 Sodium 138.7 Potassium 3.8 Chloride 102 Carbon Dioxide 24 Anion Gap 13 BUN 13 Creatinine 0.72 Est GFR ( Amer) > 60 Glucose 234 H Calcium 9.6 Total Bilirubin 0.8 AST 46 Alkaline Phosphatase 51 Total Protein 8.0 Albumin 4.5 Triglycerides Cholesterol LDL Cholesterol Direct VLDL Cholesterol HDL Cholesterol Lipase 108.3 Urine Color YELLOW Urine Appearance CLEAR Urine pH 5.0 Ur Specific [place] 1.031 Urine Protein NEGATIVE Urine Glucose (UA) >=500 H Urine Ketones 20 H Urine Blood NEGATIVE Urine RBC (Auto) 0 03/22/19 04:10 WBC RBC Hgb Hct MCV MCH MCHC RDW Plt Count Seg Neutrophils % Sodium Potassium Chloride Carbon Dioxide Anion Gap BUN Creatinine Est GFR ( Amer) Glucose Calcium Total Bilirubin AST Alkaline Phosphatase Total Protein Albumin Triglycerides 159 H Cholesterol 271.70 H LDL Cholesterol Direct 185 H VLDL Cholesterol 31.8 H HDL Cholesterol 42 Lipase Urine Color Urine Appearance Urine pH Ur Specific [place] Urine Protein Urine Glucose (UA) Urine Ketones Urine Blood Urine RBC (Auto) 03/21/19 12:55 Troponin I < 0.012 Impressions: Head CT 03/21/19 14:41 IMPRESSION: NORMAL BRAIN CT WITHOUT CONTRAST. EVIDENCE OF ACUTE STROKE: NO. Chest X-Ray 03/21/19 14:44 IMPRESSION: NO ACUTE RADIOGRAPHIC FINDING IN THE CHEST. Carotid Doppler Study 03/21/19 14:50 IMPRESSION: 1. No significant stenosis of the cervical carotid arteries 2. Normal antegrade flow in the left vertebral artery 3. Right vertebral artery could not be visualized. Correlating with MRA performed today, the right vertebral artery may be occluded. Consider CTA head and neck. Head MRI 03/21/19 16:38 IMPRESSION: Diffusion-weighted images are positive for acute nonhemorrhagic ischemic change in the inferior right cerebellar hemisphere and posterolateral right medulla Absent flow signal in the right vertebral artery at the level of the foramen magnum. No flow signal in the right posterior inferior cerebellar artery is seen. EVIDENCE OF ACUTE STROKE: YES. Brain MRI with MRA 03/21/19 16:39 IMPRESSION: Diffusion-weighted images are positive for acute nonhemorrhagic ischemic change in the inferior right cerebellar hemisphere and posterolateral right medulla Absent flow signal in the right vertebral artery at the level of the foramen magnum. No flow signal in the right posterior inferior cerebellar artery is seen. EVIDENCE OF ACUTE STROKE: YES. Assessment and Plan - Diagnosis (1) CVA (cerebrovascular accident) Qualifiers: CVA mechanism: thrombosis Precerebral and cerebral artery: posterior cerebral artery Laterality of affected vessel: right Qualified Code(s): I63.331 - Cerebral infarction due to thrombosis of right posterior cerebral artery Is this a current diagnosis for this admission?: Yes (2) Gait disturbance Is this a current diagnosis for this admission?: Yes - Plan Summary Summary: Patient is admitted to the medical floor where he will receive routine supportive and symptomatic cares. He will have neuro checks performed every 4 hours and his vital signs be monitored closely. Physical therapy, occupational therapy and speech therapy will be consulted to evaluate the patient in the morning patient will also be seen by the stroke nurse and the dietitian for ongoing stroke prevention management. A telemetry neurology consultation may need to be obtained. Patient will be started on an antiplatelet medication and a statin. Antihypertensives will be provided as required starting with a hydrochlorothiazide diuretic. He will use Nubain 5 to 10 mg IV every 3 hours on as-needed basis for pain. He will receive IV hydralazine 20 mg every 4 hours as needed for blood pressure greater than 160/100. 03/22/2019 She is vital signs are extremely stable. Admission blood pressure 146/84, this morning it is 114/74, pulse rate is in the 70s CBC is normal, coags normal, Chem-7 normal Glycerides elevated 159 total cholesterol elevated 271 LDL elevated at 185 HDL low at 42. This is a fasting serum Patient was put on Plavix last night I am going to add aspirin 81 mg daily. Also going to add a statin Lipitor 40 mg a day. Patient has multiple abnormalities concerning his MRA of his brain and neck. [facility]. Patient is medically stable. Patient's history goes back now approximately 3 weeks. - Time Time Spent with patient: 35 or more minutes
[2019-03-22] MEDS: ASPIRIN 81 MG TABLET, ENT COATED PO SCH (14:01)
[2019-03-22] MEDS ORDERED: ATORVASTATIN CALCIUM 20 MG TABLET PO SCH (22:00)
[2019-03-22] MEDS ORDERED: ATORVASTATIN CALCIUM 40 MG TABLET PO SCH (22:00)
[2019-03-23] MEDS: HEPARIN SOD (PORCINE) 5,000 UNIT/ML 1 ML VIAL SUBCUT SCH (06:03)
[2019-03-23 08:28] VITALS: BP 109/72
[2019-03-23] MEDS: HYDROCHLOROTHIAZIDE 12.5 MG TABLET PO SCH (08:29)
[2019-03-23] MEDS ORDERED: FAMOTIDINE 20 MG TABLET PO SCH (10:00)
[2019-03-23] MEDS: ASPIRIN 81 MG TABLET, ENT COATED PO SCH (10:12)
[2019-03-23] MEDS: CLOPIDOGREL BISULFATE 75 MG TABLET PO SCH (10:12)
--- NOTE | 2019-03-25 13:09 | PDOC DISCHARGE SUMMARY ---
Impression - Admit/DC Date/PCP Admission Date/Primary Care Provider: 03/21/19 20:57 [facility] Discharge Date: 03/23/19 - Discharge Diagnosis (1) CVA (cerebrovascular accident) Is this a current diagnosis for this admission?: Yes (2) Gait disturbance Is this a current diagnosis for this admission?: Yes (3) Hyperlipidemia Is this a current diagnosis for this admission?: Yes (4) Obesity Is this a current diagnosis for this admission?: Yes - Assessment Summary: Patient is admitted to the medical floor where he will receive routine supportive and symptomatic cares. He will have neuro checks performed every 4 hours and his vital signs be monitored closely. Physical therapy, occupational therapy and speech therapy will be consulted to evaluate the patient in the morning patient will also be seen by the stroke nurse and the dietitian for ongoing stroke prevention management. A telemetry neurology consultation may need to be obtained. Patient will be started on an antiplatelet medication and a statin. Antihypertensives will be provided as required starting with a hydrochlorothiazide diuretic. He will use Nubain 5 to 10 mg IV every 3 hours on as-needed basis for pain. He will receive IV hydralazine 20 mg every 4 hours as needed for blood pressure greater than 160/100. 03/22/2019 She is vital signs are extremely stable. Admission blood pressure 146/84, this morning it is 114/74, pulse rate is in the 70s CBC is normal, coags normal, Chem-7 normal Glycerides elevated 159 total cholesterol elevated 271 LDL elevated at 185 HDL low at 42. This is a fasting serum Patient was put on Plavix last night I am going to add aspirin 81 mg daily. Also going to add a statin Lipitor 40 mg a day. Patient has multiple abnormalities concerning his MRA of his brain and neck. Patient will need [facility] be [facility]. Patient is medically stable. Patient's history goes back now approximately 3 weeks. 03/23/2019 She was discharged home with a 3-month prescription of Plavix as well as a 3-mo [facility] prescription of Lipitor 40 mg a day [facility] in [facility]. I spent a great deal of time talking to the patient about strokes, stroke prevention Patient has no deficit at the time of discharge - Additional Information Resuscitation Status: Full Code Discharge Diet: As Tolerated Discharge Activity: Activity As Tolerated Ref[facility]: [facility] - 05/25/19 1:00 pm ([facility] Prescriptions: Atorvastatin Calcium [Lipitor 40 mg Tablet] 40 mg PO QHS 30 Days #30 tablet Clopidogrel Bisulfate [Plavix 75 mg Tablet] 75 mg PO DAILY 30 Days #30 tablet Home Medications: Aspirin [Ecotrin 81 mg EC Tablet] 81 mg PO DAILY tabec 03/23/19 Atorvastatin Calcium [Lipitor 40 mg Tablet] 40 mg PO QHS 30 Days #30 tablet 03/23/19 Clopidogrel Bisulfate [Plavix 75 mg Tablet] 75 mg PO DAILY 30 Days #30 tablet 03/23/19 History of Present Illiness History of Present Illness: FRANCE CHAVIRA is a 63 year old male Physical Exam Vital Signs: Temp Pulse Resp BP Pulse Ox 98.1 F 82 17 109/72 98 03/23/19 11:20 03/23/19 11:20 03/23/19 11:20 03/23/19 08:33 03/23/19 11:20 Results Laboratory Results: WBC 6.6 10^3/uL (4.0-10.5) 03/21/19 12:55 RBC 4.59 10^6/uL (4.35-5.55) 03/21/19 12:55 Hgb 15.5 g/dL (13.5-17.0) 03/21/19 12:55 Hct 43.8 % (37.9-51.0) 03/21/19 12:55 MCV 96 fl (80-97) 03/21/19 12:55 MCH 33.7 pg (27.0-33.4) H 03/21/19 12:55 MCHC 35.3 g/dL (32.0-36.0) 03/21/19 12:55 RDW 12.4 % (11.5-14.0) 03/21/19 12:55 Plt Count 172 10^3/uL (150-450) 03/21/19 12:55 Lymph % (Auto) 21.0 % (13-45) 03/21/19 12:55 [place] % (Auto) 7.6 % (3-13) 03/21/19 12:55 Eos % (Auto) 1.5 % (0-6) 03/21/19 12:55 Baso % (Auto) 1.0 % (0-2) 03/21/19 12:55 Absolute Neuts (auto) 4.6 10^3/uL (1.7-8.2) 03/21/19 12:55 Absolute Lymphs (auto) 1.4 10^3/uL (0.5-4.7) 03/21/19 12:55 Absolute Monos (auto) 0.5 10^3/uL (0.1-1.4) 03/21/19 12:55 Absolute Eos (auto) 0.1 10^3/uL (0.0-0.6) 03/21/19 12:55 Absolute Basos (auto) 0.1 10^3/uL (0.0-0.2) 03/21/19 12:55 Seg Neutrophils % 68.9 % (42-78) 03/21/19 12:55 PT 13.1 SEC (11.4-15.4) 03/21/19 12:55 INR 0.99 03/21/19 12:55 APTT 26.1 SEC (23.5-35.8) 03/21/19 12:55 Sodium 138.7 mmol/L (137-145) 03/21/19 12:55 Potassium 3.8 mmol/L (3.6-5.0) 03/21/19 12:55 Chloride 102 mmol/L (98-107) 03/21/19 12:55 Carbon Dioxide 24 mmol/L (22-30) 03/21/19 12:55 Anion Gap 13 (5-19) 03/21/19 12:55 BUN 13 mg/dL (7-20) 03/21/19 12:55 Creatinine 0.72 mg/dL (0.52-1.25) 03/21/19 12:55 Est GFR ( Amer) > 60 (>60) 03/21/19 12:55 Est GFR (MDRD) Non-Af > 60 (>60) 03/21/19 12:55 Glucose 234 mg/dL (75-110) H 03/21/19 12:55 Hemoglobin A1c % 9.9 % (4.7-6.0) H 03/23/19 05:19 Calcium 9.6 mg/dL (8.4-10.2) 03/21/19 12:55 Total Bilirubin 0.8 mg/dL (0.2-1.3) 03/21/19 12:55 Direct Bilirubin 0.2 mg/dL (0.0-0.4) 03/21/19 12:55 Neonat Total Bilirubin Not Reportable 03/21/19 12:55 Neonat Direct Bilirubin Not Reportable 03/21/19 12:55 Neonat Indirect Bili Not Reportable 03/21/19 12:55 AST 46 U/L (17-59) 03/21/19 12:55 ALT 56 U/L (<50) 03/21/19 12:55 Alkaline Phosphatase 51 U/L (38-126) 03/21/19 12:55 Troponin I < 0.012 ng/mL 03/21/19 12:55 Total Protein 8.0 g/dL (6.3-8.2) 03/21/19 12:55 Albumin 4.5 g/dL (3.5-5.0) 03/21/19 12:55 Triglycerides 159 mg/dL (<150) H 03/22/19 04:10 Cholesterol 271.70 mg/dL (0-200) H 03/22/19 04:10 LDL Cholesterol Direct 185 mg/dL (<100) H 03/22/19 04:10 VLDL Cholesterol 31.8 mg/dL (10-31) H 03/22/19 04:10 HDL Cholesterol 42 mg/dL (>40) 03/22/19 04:10 Lipase 108.3 U/L (23-300) 03/21/19 12:55 Urine Color YELLOW 03/21/19 13:14 Urine Appearance CLEAR 03/21/19 13:14 Urine pH 5.0 (5.0-9.0) 03/21/19 13:14 Ur Specific [place] 1.031 03/21/19 13:14 Urine Protein NEGATIVE mg/dL (NEGATIVE) 03/21/19 13:14 Urine Glucose (UA) >=500 mg/dL (NEGATIVE) H 03/21/19 13:14 Urine Ketones 20 mg/dL (NEGATIVE) H 03/21/19 13:14 Urine Blood NEGATIVE (NEGATIVE) 03/21/19 13:14 Urine Nitrite (Reflex) NEGATIVE (NEGATIVE) 03/21/19 13:14 Urine Bilirubin NEGATIVE (NEGATIVE) 03/21/19 13:14 Urine Urobilinogen NEGATIVE mg/dL (<2.0) 03/21/19 13:14 Leukocyte Esterase Rfl NEGATIVE (NEGATIVE) 03/21/19 13:14 Urine RBC (Auto) 0 /HPF 03/21/19 13:14 Urine Bacteria (Auto) TRACE /HPF 03/21/19 13:14 Urine WBC (Reflex) 1 /HPF 03/21/19 13:14 Squamous Epi Cells Auto <1 /HPF 03/21/19 13:14 Urine Mucus (Auto) OCC /LPF 03/21/19 13:14 Urine Ascorbic Acid NEGATIVE (NEGATIVE) 03/21/19 13:14 POC Stool Occult Blood NEGATIVE (NEGATIVE) 03/21/19 20:37 03/21/19 12:55 Troponin I < 0.012 Impressions: Head CT 03/21/19 14:41 IMPRESSION: NORMAL BRAIN CT WITHOUT CONTRAST. EVIDENCE OF ACUTE STROKE: NO. Chest X-Ray 03/21/19 14:44 IMPRESSION: NO ACUTE RADIOGRAPHIC FINDING IN THE CHEST. Carotid Doppler Study 03/21/19 14:50 IMPRESSION: 1. No significant stenosis of the cervical carotid arteries 2. Normal antegrade flow in the left vertebral artery 3. Right vertebral artery could not be visualized. Correlating with MRA performed today, the right vertebral artery may be occluded. Consider CTA head and neck. Head MRI 03/21/19 16:38 IMPRESSION: Diffusion-weighted images are positive for acute nonhemorrhagic ischemic change in the inferior right cerebellar hemisphere and posterolateral right medulla Absent flow signal in the right vertebral artery at the level of the foramen magnum. No flow signal in the right posterior inferior cerebellar artery is seen. EVIDENCE OF ACUTE STROKE: YES. Brain MRI with MRA 03/21/19 16:39 IMPRESSION: Diffusion-weighted images are positive for acute nonhemorrhagic ischemic change in the inferior right cerebellar hemisphere and posterolateral right medulla Absent flow signal in the right vertebral artery at the level of the foramen magnum. No flow signal in the right posterior inferior cerebellar artery is seen. EVIDENCE OF ACUTE STROKE: YES. Stroke Is this a Stroke Patient?: Yes Stroke Pt being discharged on Anti-thrombolytic therapy?: Yes Stroke Pt being discharged on Anti-coagulation therapy?: Yes Stroke Pt being discharged on Statins?: Yes Acute Heart Failure - Is this a Heart Failure Patient?: No
== END 2019-03-23 12:26 | disposition home or self-care (01) | DRG 66 ==
LOC: ER 12:15 → UNDOADMIN 20:57 → EH 20:57 → 3W 03-22 00:47
PROVIDERS: ADMIT Emergency Medicine; ATTEND Emergency Medicine
DX: I63.331 Cerebral infarction due to thrombosis of right posterior cerebral artery (principal); E78.5 Hyperlipidemia, unspecified; E66.9 Obesity, unspecified; R26.9 Unspecified abnormalities of gait and mobility; R20.0 Anesthesia of skin; I10 Essential (primary) hypertension; Z60.2 Problems related to living alone; Z87.891 Personal history of nicotine dependence; Z88.0 Allergy status to penicillin; Z91.030 Bee allergy status
CPT/HCPCS: 36415; 70450; 70544; 70551; 71045; 80053; 80061; 81001; 83036; 83690; 84484; 85025; 85610; 85730; 93005; 93010; 93880; 96360; 99291; 99292; J0360; J1644; J3490; J7030